=== PATIENT | male | born 1955 | race Caucasian/White ===

== ENCOUNTER 2024-10-06 12:54 | Inpatient (IN) | payer OTHER, MEDICARE ==
[2024-10-06] MEDS ORDERED: VANCOMYCIN IV PER PHARMACY 1 EACH MISC MISCELLANE PRN (13:21)
--- NOTE | 2024-10-06 13:33 | ED ---
General Adult HPI - General Stated complaint: L foot issue Time Seen by Provider: 10/06/24 13:15 Source: patient, RN notes reviewed, old records reviewed - History of Present Illness Initial comments: This is a 69-year-old male who was sent in by the [facility] for exposed bone and infection on the second toe of the left foot. Patient states it started bothering him about 2 weeks ago and the pain subsided about a week ago but he went into see the doctor today and the doctor told him it was infected he had exposed bone and need to get to the emergency department immediately. Patient denies any injury to the area. Patient denies any diabetes. Patient denies any fever chills. Patient states that Wrist of the f oot is starting to get swollen red and mildly tender. - Related Data Allergies Allergy/AdvReac Type Severity Reaction Status Date / Time No Known Allergies Allergy Verified 10/06/24 13:56 Review of Systems ROS Statement: Those systems with pertinent positive or pertinent negative responses have been documented in the HPI. ROS Other: All systems not noted in ROS Statement are negative. General Exam - General Exam Comments Initial Comments: GENERAL: Patient is well-developed and well-nourished. Patient is nontoxic and well- hydrated and is in no acute distress. ENT: Neck is soft and supple. No significant lymphadenopathy is noted. Oropharynx is clear. Moist mucous membranes. Neck has full range of motion without eliciting any pain. EYES: The sclera were anicteric and conjunctiva were pink and moist. Extraocular movements were intact and pupils were equal round and reactive to light. Eyelids were unremarkable. PULMONARY: Unlabored respirations. Good breath sounds bilaterally. No audible rales rhonchi or wheezing was noted. CARDIOVASCULAR: There is a regular rate and rhythm without any murmurs gallops or rubs. ABDOMEN: Soft and nontender with normal bowel sounds. SKIN: Skin is clear with no lesions or rashes and otherwise unremarkable. NEUROLOGIC: Patient is alert and oriented x3. Cranial nerves II through XII are grossly intact. Motor and sensory are also intact. Normal speech, volume and content. Symmetrical smile. MUSCULOSKELETAL: Patient's right foot is erythematous warm and painful. Patient's distal phalanx appears to be exposed and partly missing on the second toe on the right foot. It is necrotic and there is copious amounts of pus. LYMPHATICS: No significant lymphadenopathy is noted PSYCHIATRIC: Normal psychiatric evaluation. Course Vital Signs 10/06/24 13:57 Temperature 98.5 F Pulse Rate 83 Respiratory 16 Rate Blood Pressure 180/78 O2 Sat by Pulse 98 Oximetry Medical Decision Making - Medical Decision Making Was pt. sent in by a medical professional or institution (CATHERINE David, DIAMOND EXPERT, urgent care, hospital, or usp...) When possible be specific @ -No Did you speak to anyone other than the patient for history (EMS, parent, family, police, friend...)? What history was obtained from this source @ -No Did you review nursing and triage notes (agree or disagree)? Why? @ -I reviewed and agree with nursing and triage notes Were old charts reviewed (outside hosp., previous admission, EMS record, old EKG, old radiological studies, urgent care reports/EKG's, usp records)? Report findings @ -No old charts were reviewed Differential Diagnosis? @ -Cellulitis of the foot, necrosis of the toe, osteomyelitis, this is not an all-inclusive list EKG interpreted by me (3pts min.). @ -As above X-rays interpreted by me (1pt min.). @ -X-ray of the foot shows distal phalanx with osteomyelitis and erosion CT interpreted by me (1pt min.). @ -None done U/S interpreted by me (1pt. min.). @ -None done What testing was considered but not performed or refused? (CT, X-rays, U/S, labs)? Why? @ -None What meds were considered but not given or refused? Why? @ -None Did you discuss the management of the patient with other professionals (professionals i.e. CATHERINE David, DIAMOND EXPERT, lab, RT, psych nurse, social worker psychiatric, accounting representative, teacher, tax revenue officer, assistant case manager)? Give summary @ -I spoke with sound physicians agreed to admit the patient I admitted the patient wrote admitting orders Was smoking cessation discussed for >3mins.? @ -No Was critical care preformed (if so, how long)? @ -No Were there social determinants of health that impacted care today? How? (Homelessness, low income, unemployed, alcoholism, drug addiction, transp ortation, low edu. Level, literacy, decrease access to med. care, senior living, rehab)? @ -No Was there de-escalation of care discussed even if they declined (Discuss DNR or withdrawal of care, Hospice)? DNR status @ -No What co-morbidities impacted this encounter? (DM, HTN, Smoking, COPD, CAD, Cancer, CVA, ARF, Chemo, Hep., AIDS, mental health diagnosis, sleep apnea, morbid obesity)? @ -None Was patient admitted / discharged? Hospital course, mention meds given and route, prescriptions, significant lab abnormalities, going to OR and other pertinent info. @ -Patient was started on vancomycin and Zosyn. Patient's x-ray showed osteomyelitis patient will be admitted to [facility] physicians with a consult to vascular surgery and infectious disease Undiagnosed new problem with uncertain prognosis? @ -No Drug Therapy requiring intensive monitoring for toxicity (Heparin, Nitro, Insulin, Cardizem)? @ -No Were any procedures done? @ -No Diagnosis/symptom? @ -Osteomyelitis second toe on the right Acute, or Chronic, or Acute on Chronic? @ -Acute Uncomplicated (without systemic symptoms) or Complicated (systemic symptoms)? @ -Default Side effects of treatment? @ -No Exacerbation, Progression, or Severe Exacerbation? @ -No Poses a threat to life or bodily function? How? (Chest pain, [place], [place], pneumonia, PE, COPD, DKA, ARF, appy, cholecystitis, CVA, Diverticulitis, Homicidal, Suicidal, threat to staff... and all critical care pts) @ -Yes this can lead to sepsis and possible loss of more of the toes and feet Diagnosis/symptom? @ -Cellulitis foot Acute, or Chronic, or Acute on Chronic? @ -Acute Uncomplicated (without systemic symptoms) or Complicated (systemic symptoms)? @ -Complicated Side effects of treatment? @ -None Exacerbation, Progression, or Severe Exacerbation] @ -No Poses a threat to life or bodily function? @ -Yes this can lead to sepsis Diagnosis/symptom? @ -Hyponatremia Acute, or Chronic, or Acute on Chronic? @ -Acute Uncomplicated (without systemic symptoms) or Complicated (systemic symptoms)? @ -Complicated Side effects of treatment? @ -None Exacerbation, Progression, or Severe Exacerbation] @ -No Poses a threat to life or bodily function? @ -No - Lab Data Result diagrams: 10/06/24 14:02 10/06/24 14:02 Lab Results 10/06/24 10/06/24 10/06/24 Range/Units 14:02 14:02 14:02 WBC 14.3 H (3.8-10.6) k/uL RBC 4.20 L (4.30-5.90) m/uL Hgb 12.1 L (13.0-17.5) gm/dL Hct 36.6 L (39.0-53.0) % MCV 87.2 (80.0-100.0) fL MCH 28.7 (25.0-35.0) pg MCHC 32.9 (31.0-37.0) g/dL RDW 13.6 (11.5-15.5) % Plt Count 461 H (150-450) k/uL MPV 6.4 Neutrophils % 88 % Lymphocytes % 4 % Monocytes % 6 % Eosinophils % 0 % Basophils % 0 % Neutrophils # 12.6 H (1.3-7.7) k/uL Lymphocytes # 0.6 L (1.0-4.8) k/uL Monocytes # 0.8 (0-1.0) k/uL Eosinophils # 0.1 (0-0.7) k/uL Basophils # 0.1 (0-0.2) k/uL Sodium 125 L (137-145) mmol/L Potassium 4.2 (3.5-5.1) mmol/L Chloride 97 L (98-107) mmol/L Carbon Dioxide 19 L (22-30) mmol/L Anion Gap 9 mmol/L BUN 7 L (9-20) mg/dL Creatinine 0.61 L (0.66-1.25) mg/dL Est GFR (CKD-EPI)AfAm >90 (>60 ml/min/1.73 sqM) Est GFR (CKD-EPI)NonAf >90 (>60 ml/min/1.73 sqM) Glucose 104 H (74-99) mg/dL Plasma Lactic Acid Lyle 1.0 (0.7-2.0) mmol/L Calcium 9.3 (8.4-10.2) mg/dL Total Bilirubin 0.8 (0.2-1.3) mg/dL AST 19 (17-59) U/L ALT 13 (4-49) U/L Alkaline Phosphatase 93 (38-126) U/L Total Protein 7.4 (6.3-8.2) g/dL Albumin 4.3 (3.5-5.0) g/dL Disposition Clinical Impression: Hyponatremia, Cellulitis of foot, Osteomyelitis of toe Disposition: ADMITTED IP TO THIS HOSP Referrals: [facility],Clinic [Primary Care Provider] - 1-2 days Time of Disposition: 16:14
[2024-10-06 14:28] LABS: Basophils # (A) 0.1 k/uL (0-0.2); Basophils % (A) 0 %; Eosinophils # (A) 0.1 k/uL (0-0.7); Eosinophils % (A) 0 %; HCT 36.6 % (39.0-53.0); HGB 12.1 gm/dL (13.0-17.5); Lymphocytes # (A) 0.6 k/uL (1.0-4.8); Lymphocytes % (A) 4 %; MCH 28.7 pg (25.0-35.0); MCHC 32.9 g/dL (31.0-37.0); MCV 87.2 fL (80.0-100.0); Mean Platelet Volume 6.4; Monocytes # (A) 0.8 k/uL (0-1.0); Monocytes % (A) 6 %; Neutrophils # (A) 12.6 k/uL (1.3-7.7); Neutrophils % (A) 88 %; Platelet Count 461 k/uL (150-450); RDW 13.6 % (11.5-15.5); WBC 14.3 k/uL (3.8-10.6)
[2024-10-06] MEDS ORDERED: VANCOMYCIN 1,500 MG in SODIUM CHLORIDE 0.9% 500 ML 500 ML IVPB ONE (14:30)
[2024-10-06 15:01] LABS: ALT 13 U/L (4-49); AST 19 U/L (17-59); African American GFR (CKD) >90 (>60 ml/min/1.73 sqM); Albumin 4.3 g/dL (3.5-5.0); Alkaline Phosphatase 93 U/L (38-126); Anion Gap 9 mmol/L; Blood Urea Nitrogen 7 mg/dL (9-20); Calcium 9.3 mg/dL (8.4-10.2); Carbon Dioxide 19 mmol/L (22-30); Chloride 97 mmol/L (98-107); Glucose 104 mg/dL (74-99); Non-African American GFR(CKD) >90 (>60 ml/min/1.73 sqM); Potassium 4.2 mmol/L (3.5-5.1); Sodium 125 mmol/L (137-145); Total Bilirubin 0.8 mg/dL (0.2-1.3); Total Protein 7.4 g/dL (6.3-8.2)
--- NOTE | 2024-10-06 15:39 | XR ---
Left foot HISTORY: Foot pain rule out osteomyelitis. COMPARISON: None TECHNIQUE: 3 views of left foot were obtained. FINDINGS: There is a soft tissue defect and distraction of the distal phalanx in portion of the middle phalanx of the second toe. The findings are consistent with acute osteomyelitis. There is no fracture or disl ocation. IMPRESSION: A finding consistent with acute osteomyelitis of the second toe as described above. [facility], Workstation: ANDRES 10/06/2024 3:37 PM
[2024-10-06] MEDS: SODIUM CHLORIDE 0.9% 1,000 ML IV ONE ×2 (16:36→18:26)
[2024-10-06] MEDS: PIPERACILLIN-TAZOBACTAM 3.375 GM in SODIUM CHLORIDE 0.9% 100 ML IVPB STA (16:39)
[2024-10-06] MEDS: DILTIAZEM CD 240 MG CAP.ER.24H PO SCH (18:25)
--- NOTE | 2024-10-06 18:58 | P.HPIM ---
History of Present Illness H&P Date: 10/06/24 History of Presenting Illness: Patient is a pleasant 69-year-old male with a past medical history of prostate cancer status post prostatectomy, hypertension, and peripheral vascular disease status post stenting in bilateral lower extremities. Patient presented to the emergency department per recommendations of his PCP secondary to necrotic infection of left foot second toe. Patient reports he first noticed a very small spot on the tip of his toe approximately 2 weeks ago and was trying to keep area clean and dry and made an appointment with his PCP for evaluation. Patient reports his foot began to swell accompanied by redness, pain, and worsening of the black discoloration. He denies having any fevers, chills, chest pain, palpitations, shortness of breath, or experiencing any numbness/tingling in his extremity. Patient reports toe and surrounding area is very painful to touch. He denies history of diabetes but does state history of circulation problems with peripheral vascular disease and underwent stenting to bilateral legs at [facility] in [place] a few years ago. Unable to our facility, patient underwent evaluation in the emergency department. Vital signs upon arrival show blood pressure 180/78, heart rate 83, respiratory rate 16, temp 98.5 F, and SpO2 of 90% on room air. Labs completed and reviewed. CBC showing leukocytosis with WBC count of 14.3, hemoglobin of 12.1, platelet count of 461. BMP showing hyponatremia with sodium of 125, and metabolic alkalosis with chloride of 97, bicarb of 19, and anion gap of 9. Blood glucose was 104. Lactic acid 1.0. Liver profile unremarkable. X-ray left foot showing findings consistent with acute osteomyelitis of the second toe. Patient admitted under services with consultation to vascular surgery and infectious disease. Review of systems: Pertinent positives and negatives as discussed in HPI, a complete review of systems was performed and all other systems are negative. Physical exam: Vital signs reviewed and stable. General: Nontoxic, no distress and appears stated age. Derm: Skin warm and dry, normal coloration for ethnicity. Head: Atraumatic, normocephalic and symmetric. Eyes: EOM's intact, no lid lag, and anicteric sclera Mouth: no lip lesions, mucus membranes moist Cardiovascular: regular rate and rhythm with normal S1S2, no murmur, positive posterior tibial pulses bilaterally, and cap refill < 2 seconds. Lungs: Respirations even, regular, and unlabored on room air. Lungs CTA bilaterally, no rhonchi, no rales, no wheezing, and no accessory muscle usage. Abdominal: soft, nontender to palpation, no guarding, no appreciable organomegaly Ext: ROM intact. No gross muscle atrophy, no edema, no contractures. Patient with necrotic second digit of left foot with surrounding swelling and erythema extending up into lower leg. Neuro: Speech clear, face symmetrical and CN II-XII grossly intact with no noted focal neuro deficits Psych: Alert and oriented to person, place, time, and situation. Appropriate and pleasant affect. Assessment and Plan of Care: Osteomyelitis with necrotic second digit of left foot -Patient started on IV antibiotics with vancomycin 1500 mg every 12 hours and Zosyn 3.375 g every 8 hours. Monitor renal function and vancomycin trough closely for any signs of vancomycin associated renal toxicity. -Consult placed to infectious disease, appreciate recommendations -Consult placed to vascular surgery, appreciate recommendations -Symptomatic care and pain management with Tylenol 650 mg every 6 hours as needed for mild pain/discomfort, Elizabeth 5-325 mg tablets every 4 hours as needed for moderate pain, and morphine 4 mg IVP every 4 hours as needed for severe pain. Hyponatremia Metabolic alkalosis -Continue gentle IV fluid hydration with 0.9% normal saline at 75 cc/h. -Continue to monitor closely with repeat a.m. labs. Peripheral vascular disease -Continue aspirin 81 mg daily. Hypertension -continue lisinopril 20 mg daily and Cardizem 240 mg daily. History of prostate cancer -Post prostatectomy, continue to follow-up outpatient with urologist. Data and imaging reviewed: As stated above in HPI The patient is admitted with an anticipated greater than 2 midnight stay for evaluation of acute osteomyelitis CODE STATUS: Full code DVT prophylaxis: Lovenox Anticipated discharge date: Pending clinical course Anticipated discharge place: Pending clinical course Patient was seen independently by Nurse Practitioner. This document was prepared using [employer] dictation software. Please allow for errors in cp bleacher operator while rare they do occur. René Irving NP rendered care for this patient independently, reviewed the findings and plan as documented in the note above and agree with plan. I did not physically speak with or examine the patient on this date. Past Medical History Past Medical History: Cancer, Hypertension History of Any Multi-Drug Resistant Organisms: None Reported Past Surgical History: Adenoidectomy, Tonsillectomy Additional Past Surgical History / Comment(s): vasectomy, vascular surgery Past Psychological History: No Psychological Hx Reported Smoking Status: Former smoker Past Alcohol Use History: Occasional Past Drug Use History: None Reported Medications and Allergies Home Medications Medication Instructions Recorded Confirmed Type Acetaminophen Tab [Tylenol Tab] 1,000 mg PO Q6HR 10/06/24 10/06/24 History Aspirin EC [Ecotrin Low Dose] 81 mg PO DAILY 10/06/24 10/06/24 History Bergamot Extract [Bergacor] 650 mg PO AC-SUPPER 10/06/24 10/06/24 History Cholecalciferol (Vitamin D3) 75 mcg PO AC-SUPPER 10/06/24 10/06/24 History [Vitamin D3 (3000 Iu)] Cyanocobalamin [Vitamin B-12] 500 mcg PO AC-SUPPER 10/06/24 10/06/24 History Ferrous Sulfate [Feosol] 325 mg PO AC-SUPPER 10/06/24 10/06/24 History Garlic 1,000 mg PO AC-SUPPER 10/06/24 10/06/24 History Elise 500 mg PO AC-SUPPER 10/06/24 10/06/24 History Green Tea [place] Extract [Green Tea 250 mg PO AC-SUPPER 10/06/24 10/06/24 History Extract] Red Yeast Rice 600 mg PO AC-SUPPER 10/06/24 10/06/24 History Vitamin E (Dl,Tocopheryl Acet) 450 mg PO AC-SUPPER 10/06/24 10/06/24 History [Vitamin E (1000 Iu = 450 MG)] dilTIAZem HCL [dilTIAZem HCL 24Hr 240 mg PO AC-SUPPER 10/06/24 10/06/24 History ER (Xr)] lisinopriL [Prinivil] 20 mg PO DAILY 10/06/24 10/06/24 History Allergies Allergy/AdvReac Type Severity Reaction Status Date / Time No Known Allergies Allergy Verified 10/06/24 16:55 Physical Exam Vitals: Vital Signs Temp Pulse Resp BP Pulse Ox 10/06/24 18:13 76 18 129/64 99 10/06/24 17:45 87 18 160/78 98 10/06/24 13:57 98.5 F 83 16 180/78 98 Intake and Output 10/06/24 10/06/2424 06:59 14:59 22:59 Other: Weight 94.347 kg Results CBC & Chem 7: 10/06/24 14:02 10/06/24 14:02 Labs: Abnormal Lab Results - Last 24 Hours (Table) 10/06/24 10/06/24 Range/Units 14:02 14:02 WBC 14.3 H (3.8-10.6) k/uL RBC 4.20 L (4.30-5.90) m/uL Hgb 12.1 L (13.0-17.5) gm/dL Hct 36.6 L (39.0-53.0) % Plt Count 461 H (150-450) k/uL Neutrophils # 12.6 H (1.3-7.7) k/uL Lymphocytes # 0.6 L (1.0-4.8) k/uL Sodium 125 L (137-145) mmol/L Chloride 97 L (98-107) mmol/L Carbon Dioxide 19 L (22-30) mmol/L BUN 7 L (9-20) mg/dL Creatinine 0.61 L (0.66-1.25) mg/dL Glucose 104 H (74-99) mg/dL
[2024-10-06] MEDS: VANCOMYCIN 1,500 MG in SODIUM CHLORIDE 0.9% 500 ML 500 ML IVPB ONE (19:01)
[2024-10-06] MEDS ORDERED: ACETAMINOPHEN TAB 325 MG TAB PO PRN (19:05)
[2024-10-06] MEDS: HYDROcodone/APAP 5-325MG 1 EACH TAB PO PRN (21:27)
[2024-10-06] MEDS: PIPERACILLIN-TAZOBACTAM 3.375 GM in SODIUM CHLORIDE 0.9% 100 ML IVPB SCH (22:55)
[2024-10-07 04:12] LABS: ALT 11 U/L (4-49); AST 17 U/L (17-59); African American GFR (CKD) >90 (>60 ml/min/1.73 sqM); Albumin 3.4 g/dL (3.5-5.0); Albumin/Globulin Ratio 1.3; Alkaline Phosphatase 90 U/L (38-126); Anion Gap 7 mmol/L; Blood Urea Nitrogen 6 mg/dL (9-20); Calcium 8.6 mg/dL (8.4-10.2); Carbon Dioxide 17 mmol/L (22-30); Chloride 108 mmol/L (98-107); Globulin 2.7 g/dL; Glucose 102 mg/dL (74-99); Non-African American GFR(CKD) >90 (>60 ml/min/1.73 sqM); Potassium 4.1 mmol/L (3.5-5.1); Sodium 132 mmol/L (137-145); Total Bilirubin 0.7 mg/dL (0.2-1.3); Total Protein 6.1 g/dL (6.3-8.2)
[2024-10-07] MEDS: VANCOMYCIN 1,500 MG in SODIUM CHLORIDE 0.9% 500 ML 500 ML IVPB SCH (06:46)
[2024-10-07] MEDS: lisinopriL 20 MG TAB PO SCH (08:15)
[2024-10-07] MEDS: ASPIRIN 81 MG PO SCH (08:15)
[2024-10-07] MEDS: ENOXAPARIN 40 MG/0.4 ML SYRINGE SQ SCH (08:15)
[2024-10-07] MEDS: SODIUM CHLORIDE 0.9% 1,000 ML IV SCH (09:12)
[2024-10-07 10:40] LABS: HCT 31.5 % (39.6-50.0); HGB 10.4 g/dL (13.0-17.0); MCH 28.3 pg (27.0-32.0); MCV 85.8 FL (80.0-97.0); Mean Platelet Volume 8.3 FL (9.5-12.2); NRBC Per 100 WBC 0 X 10*3/uL (0.00-0.01); Platelet Count 351 X 10*3/uL (140-440); RBC 3.67 X 10*6/uL (4.40-5.60); RDW 14.4 % (11.5-14.5); WBC 9.73 X 10*3/uL (4.50-10.00)
[2024-10-07 10:53] LABS: Chol/HDL Ratio 3.44 Ratio; Magnesium 2.1 mg/dL (1.5-2.4); VLDL Calculation 16.96 mg/dL (5.00-40.00)
--- NOTE | 2024-10-07 12:20 | P.PN ---
Subjective Progress Note Date: 10/07/24 Hospital course: Patient is a pleasant 69-year-old male with a past medical history of prostate cancer status post prostatectomy, hypertension, and peripheral vascular disease status post stenting in bilateral lower extremities. Patient presented to the emergency department per recommendations of his PCP secondary to necrotic infection of left foot second toe. Patient reports he first noticed a very small spot on the tip of his toe approximately 2 weeks ago and was trying to keep area clean and dry and made an appointment with his PCP for evaluation. Patient reports his foot began to swell accompanied by redness, pain, and worsening of the black discoloration. He denies having any fevers, chills, chest pain, palpitations, shortness of breath, or experiencing any numbness/tingling in his extremity. Patient reports toe and surrounding area is very painful to touch. He denies history of diabetes but does state history of circulation problems with peripheral vascular disease and underwent stenting to bilateral legs at [facility] in [place] a few years ago. Unable to our facility, patient underwent evaluation in the emergency department. Vital signs upon arrival show blood pressure 180/78, heart rate 83, respiratory rate 16, temp 98.5 F, and SpO2 of 90% on room air. Labs completed and reviewed. CBC showing leukocytosis with WBC count of 14.3, hemoglobin of 12.1, platelet count of 461. BMP showing hyponatremia with sodium of 125, and metabolic alkalosis with chloride of 97, bicarb of 19, and anion gap of 9. Blood glucose was 104. Lactic acid 1.0. Liver profile unremarkable. X-ray left foot showing findings consistent with acute osteomyelitis of the second toe. Patient admitted under services with consultation to vascular surgery and infectious disease. Physical exam: Patient seen and fully evaluated at bedside this morning. He reports currently having some pain in his left foot but states it is improved from yesterday with current pain medication regimen. Vital signs reviewed and stable. General: Nontoxic, no distress and appears stated age. Derm: Skin warm and dry, normal coloration for ethnicity. Head: Atraumatic, normocephalic and symmetric. Eyes: EOM's intact, no lid lag, and anicteric sclera Mouth: no lip lesions, mucus membranes moist Cardiovascular: regular rate and rhythm with normal S1S2, no murmur, positive posterior tibial pulses bilaterally, and cap refill < 2 seconds. Lungs: Respirations even, regular, and unlabored on room air. Lungs CTA bilaterally, no rhonchi, no rales, no wheezing, and no accessory muscle usage. Abdominal: soft, nontender to palpation, no guarding, no appreciable organomegaly Ext: ROM intact. No gross muscle atrophy, no edema, no contractures. Patient with necrotic second digit of left foot with surrounding swelling and erythema extending up into lower leg. Neuro: Speech clear, face symmetrical and CN II-XII grossly intact with no noted focal neuro deficits Psych: Alert and oriented to person, place, time, and situation. Appropriate and pleasant affect. Assessment and Plan of Care: Osteomyelitis with necrotic second digit of left foot -Patient started on IV antibiotics with vancomycin 1500 mg every 12 hours and Zosyn 3.375 g every 8 hours. Monitor renal function and vancomycin trough closely for any signs of vancomycin associated renal toxicity. -Consult placed to infectious disease, appreciate recommendations -Consult placed to vascular surgery, appreciate recommendations -Symptomatic care and pain management with Tylenol 650 mg every 6 hours as needed for mild pain/discomfort, Hydes 5-325 mg tablets every 4 hours as needed for moderate pain, and morphine 4 mg IVP every 4 hours as needed for severe pain. -Follow-up on blood culture results once available. Hyponatremia Metabolic alkalosis -Continue gentle IV fluid hydration with 0.9% normal saline at 75 cc/h. -Continue to monitor closely with repeat a.m. labs. Peripheral vascular disease -Continue aspirin 81 mg daily. Hypertension -continue lisinopril 20 mg daily and Cardizem 240 mg daily. History of prostate cancer -Post prostatectomy, continue to follow-up outpatient with urologist. Data and imaging reviewed: Morning labs reviewed. CBC showing resolution of leukocytosis with WBC count decreasing from 14.3 down to 9.73. Hemoglobin stable at 10.4. BMP showing improvement of hyponatremia with sodium increasing from 125-132 and metabolic acidosis with chloride of 108, bicarb of 17, and anion gap of 7. Blood glucose 102. Magnesium 2.1. Liver profile unremarkable. Albumin low at 3.4. Lipid profile unremarkable with exception of low HDL of 36.00. Vital signs reviewed. Blood pressure 137/70, heart rate 53, respiratory rate 17, temp 99.3 F, and SpO2 of 98% on room air. CODE STATUS: Full code DVT prophylaxis: Lovenox Anticipated discharge date: Pending clinical course Anticipated discharge place: Pending clinical course Patient was seen independently by Nurse Practitioner. This document was prepared using [employer] dictation software. Please allow for errors in quartz miner blasting while rare they do occur. René Irving NP rendered care for this patient independently, reviewed the findings and plan as documented in the note above and agree with plan. I did not physically speak with or examine the patient on this date. Objective - Vital Signs Vital signs: Vital Signs Temp 99.3 F 10/07/24 07:29 Pulse 53 L 10/07/24 07:29 Resp 17 10/07/24 07:29 BP 137/70 10/07/24 07:29 Pulse Ox 98 10/07/24 07:29 FiO2 Intake & Output 10/06/24 10/07/24 10/07/24 18:59 06:59 18:59 Weight 94.347 kg 94.347 kg Other: # Voids 2 - Labs CBC & Chem 7: 10/07/24 03:38 10/07/24 03:38 Labs: Abnormal Lab Results - Last 24 Hours (Table) 10/06/24 10/06/24 10/07/24 Range/Units 14:02 14:02 03:38 WBC 14.3 H (3.8-10.6) k/uL RBC 4.20 L (4.30-5.90) m/uL Hgb 12.1 L (13.0-17.5) gm/dL Hct 36.6 L (39.0-53.0) % Plt Count 461 H (150-450) k/uL Neutrophils # 12.6 H (1.3-7.7) k/uL Lymphocytes # 0.6 L (1.0-4.8) k/uL Sodium 125 L 132 L (137-145) mmol/L Chloride 97 L 108 H (98-107) mmol/L Carbon Dioxide 19 L 17 L (22-30) mmol/L BUN 7 L 6 L (9-20) mg/dL Creatinine 0.61 L 0.64 L (0.66-1.25) mg/dL Glucose 104 H 102 H (74-99) mg/dL Total Protein 6.1 L (6.3-8.2) g/dL Albumin 3.4 L (3.5-5.0) g/dL
--- NOTE | 2024-10-07 15:12 | P.GSCN ---
History of Present Illness Consult date: 10/07/24 History of present illness: Ezio is a 69-year-old male with peripheral vascular disease who reportedly in 2019 had bilateral femoral incisions and stenting of his legs, he is not exactly sure where however he states he was in a 6-hour surgery in order to treat this area. At the time he also had issues with his veins and stripping. He states that he has a follow-up coming up with his vascular surgeons in [place] in the next 2 to 3 weeks and has had normal exam since his last visit. He states he initially had a small spot on the tip of his second toe on his left and has been trying to keep it clean and dry. He states that at some point it became bl ackened and traveled on the tip of the toe fell off. He states he was seen by his primary and told he needed to come into the hospital for further evaluation and workup. He did undergo an x-ray in the ER showing findings consistent with acute osteomyelitis of the second toe. Overall he thinks his swelling is improving in his left leg although still uncomfortable to him. Since his prostate surgery for cancer he has tried his best to forego any processed foods. He thinks overall this has helped his diet Past Medical History Past Medical History: Cancer, Hypertension Additional Past Medical History / Comment(s): PVD History of Any Multi-Drug Resistant Organisms: None Reported Past Surgical History: Adenoidectomy, Tonsillectomy Additional Past Surgical History / Comment(s): vasectomy, vascular surgery, Stents to bilat LE, Past Anesthesia/Blood Transfusion Reactions: No Reported Reaction Past Psychological History: No Psychological Hx Reported Smoking Status: Former smoker Past Alcohol Use History: Occasional Past Drug Use History: None Reported Medications and Allergies Home Medications Medication Instructions Recorded Confirmed Type Acetaminophen Tab [Tylenol Tab] 1,000 mg PO Q6HR 10/06/24 10/06/24 History Aspirin EC [Ecotrin Low Dose] 81 mg PO DAILY 10/06/24 10/06/24 History Bergamot Extract [Bergacor] 650 mg PO AC-SUPPER 10/06/24 10/06/24 History Cholecalciferol (Vitamin D3) 75 mcg PO AC-SUPPER 10/06/24 10/06/24 History [Vitamin D3 (3000 Iu)] Cyanocobalamin [Vitamin B-12] 500 mcg PO AC-SUPPER 10/06/24 10/06/24 History Ferrous Sulfate [Feosol] 325 mg PO AC-SUPPER 10/06/24 10/06/24 History Garlic 1,000 mg PO AC-SUPPER 10/06/24 10/06/24 History Elise 500 mg PO AC-SUPPER 10/06/24 10/06/24 History Green Tea [place] Extract [Green Tea 250 mg PO AC-SUPPER 10/06/24 10/06/24 History Extract] Red Yeast Rice 600 mg PO AC-SUPPER 10/06/24 10/06/24 History Vitamin E (Dl,Tocopheryl Acet) 450 mg PO AC-SUPPER 10/06/24 10/06/24 History [Vitamin E (1000 Iu = 450 MG)] dilTIAZem HCL [dilTIAZem HCL 24Hr 240 mg PO AC-SUPPER 10/06/24 10/06/24 History ER (Xr)] lisinopriL [Prinivil] 20 mg PO DAILY 10/06/24 10/06/24 History Allergies Allergy/AdvReac Type Severity Reaction Status Date / Time No Known Allergies Allergy Verified 10/06/24 16:55 Surgical - Exam Vital Signs Temp Pulse Resp BP Pulse Ox 98.5 F 83 16 180/78 98 10/06/24 13:57 10/06/24 13:57 10/06/24 13:57 10/06/24 13:57 10/06/24 13:57 General is a pleasant cooperative male in no acute distress. Heart appears regular. No respiratory distress. Abdomen is soft, nontender nondistended. Easily palpable femoral pulses bilaterally. Weakly palpable DP on the left, moderate edema. There is necrosis of the second toe with mild erythema on the inferior portion with a open wound. Distal tip of the second toe is missing. He is alert and oriented to person place and time. Cranial nerves II through XII grossly intact Results X-ray reviewed showing osteomyelitis - Labs 10/07/24 03:38 10/07/24 03:38 Abnormal Lab Results - Last 24 Hours (Table) 10/07/24 10/07/24 Range/Units 03:38 03:38 RBC 3.67 L (4.40-5.60) X 10*6/uL Hgb 10.4 L (13.0-17.0) g/dL Hct 31.5 L (39.6-50.0) % MPV 8.3 L (9.5-12.2) FL Sodium 132 L (137-145) mmol/L Chloride 108 H (98-107) mmol/L Carbon Dioxide 17 L (22-30) mmol/L BUN 6 L (9-20) mg/dL Creatinine 0.64 L (0.66-1.25) mg/dL Glucose 102 H (74-99) mg/dL Total Protein 6.1 L (6.3-8.2) g/dL Albumin 3.4 L (3.5-5.0) g/dL HDL Cholesterol 36.00 L (40.00-60.00) mg/dL Diabetes panel 10/07/24 10/07/24 Range/Units 03:38 03:38 Sodium 132 L (137-145) mmol/L Potassium 4.1 (3.5-5.1) mmol/L Chloride 108 H (98-107) mmol/L Carbon Dioxide 17 L (22-30) mmol/L BUN 6 L (9-20) mg/dL Creatinine 0.64 L (0.66-1.25) mg/dL Glucose 102 H (74-99) mg/dL Hemoglobin A1c 5.3 (<=6.0) % Calcium 8.6 (8.4-10.2) mg/dL AST 17 (17-59) U/L ALT 11 (4-49) U/L Alkaline Phosphatase 90 (38-126) U/L Total Protein 6.1 L (6.3-8.2) g/dL Albumin 3.4 L (3.5-5.0) g/dL Triglycerides 84.80 (0.00-149.00) mg/dL HDL Cholesterol 36.00 L (40.00-60.00) mg/dL Calcium panel 10/07/24 Range/Units 03:38 Calcium 8.6 (8.4-10.2) mg/dL Albumin 3.4 L (3.5-5.0) g/dL Pituitary panel 10/07/24 Range/Units 03:38 Sodium 132 L (137-145) mmol/L Potassium 4.1 (3.5-5.1) mmol/L Chloride 108 H (98-107) mmol/L Carbon Dioxide 17 L (22-30) mmol/L BUN 6 L (9-20) mg/dL Creatinine 0.64 L (0.66-1.25) mg/dL Glucose 102 H (74-99) mg/dL Calcium 8.6 (8.4-10.2) mg/dL Adrenal panel 10/07/24 Range/Units 03:38 Sodium 132 L (137-145) mmol/L Potassium 4.1 (3.5-5.1) mmol/L Chloride 108 H (98-107) mmol/L Carbon Dioxide 17 L (22-30) mmol/L BUN 6 L (9-20) mg/dL Creatinine 0.64 L (0.66-1.25) mg/dL Glucose 102 H (74-99) mg/dL Calcium 8.6 (8.4-10.2) mg/dL Total Bilirubin 0.7 (0.2-1.3) mg/dL AST 17 (17-59) U/L ALT 11 (4-49) U/L Alkaline Phosphatase 90 (38-126) U/L Total Protein 6.1 L (6.3-8.2) g/dL Albumin 3.4 L (3.5-5.0) g/dL Assessment and Plan Assessment: Acute osteomyelitis with necrosis of the second toe on the left foot. Continue antibiotics at this time. Will plan for toe amputation tomorrow, will hold off at this point on any aggressive arterial imaging as patient does have follow-up shortly with his primary vascular surgeons. Will reevaluate this pending surgical intervention. Risks and benefits were discussed including but not limited to bleeding, infection And poor wound healing. He seemingly understands and is willing to proceed.
[2024-10-07] MEDS: FERROUS SULFATE 325 MG TAB PO SCH (17:22)
[2024-10-07] MEDS: AMPICILLIN-SULBACTAM 3 GM in SODIUM CHLORIDE 0.9% 100 ML IVPB SCH (17:22)
--- NOTE | 2024-10-07 22:13 | P.CONS ---
History of Present Illness - Reason for Consult Consult date: 10/07/24 Osteomyelitis Requesting physician: Ming Bruner - Chief Complaint Left second toe tip discoloration x days - History of Present Illness Patient is a 69-year-old male with a past medical history significant for hypertension peripheral vascular disease former smoker presenting to the hospital for evaluation of increasing discoloration to the left second toe patient mention tip of his left second toe developed a small ulceration on the tip that he has been trying to keep it clean and dry subsequently has been evaluated by the PCP noticed to have a blackish discoloration and gangrene and the patient was advised to go to the hospital patient denies having any fever or any chills has been complaining of pain which is mostly dull aching to sharp moderate intensity without radiation patient has significant foul-smelling drainage on presentation to the hospital the patient was afebrile no fever have been recorded subsequently patient was not tachycardic hypotensive or hypoxic patient did have a white count of 14.3 with a left shift BUN and creatinine has been normal liver isms are normal patient did have x-ray of the foot did shows acute osteomyelitis of the second toe on the left side he was started on vancomycin and Zosyn infectious disease was consulted for further management of antibiotic therapy Review of Systems Positive point and negatives has been mentioned in the HPI, complete review of systems was performed and all other systems are negative Past Medical History Past Medical History: Cancer, Hypertension Additional Past Medical History / Comment(s): PVD History of Any Multi-Drug Resistant Organisms: None Reported Past Surgical History: Adenoidectomy, Tonsillectomy Additional Past Surgical History / Comment(s): vasectomy, vascular surgery, Stents to bilat LE, Past Anesthesia/Blood Transfusion Reactions: No Reported Reaction Past Psychological History: No Psychological Hx Reported Smoking Status: Former smoker Past Alcohol Use History: Occasional Past Drug Use History: None Reported Medications and Allergies Home Medications Medication Instructions Recorded Confirmed Type Acetaminophen Tab [Tylenol Tab] 1,000 mg PO Q6HR 10/06/24 10/06/24 History Aspirin EC [Ecotrin Low Dose] 81 mg PO DAILY 10/06/24 10/06/24 History Bergamot Extract [Bergacor] 650 mg PO AC-SUPPER 10/06/24 10/06/24 History Cholecalciferol (Vitamin D3) 75 mcg PO AC-SUPPER 10/06/24 10/06/24 History [Vitamin D3 (3000 Iu)] Cyanocobalamin [Vitamin B-12] 500 mcg PO AC-SUPPER 10/06/24 10/06/24 History Ferrous Sulfate [Feosol] 325 mg PO AC-SUPPER 10/06/24 10/06/24 History Garlic 1,000 mg PO AC-SUPPER 10/06/24 10/06/24 History Elise 500 mg PO AC-SUPPER 10/06/24 10/06/24 History Green Tea [place] Extract [Green Tea 250 mg PO AC-SUPPER 10/06/24 10/06/24 History Extract] Red Yeast Rice 600 mg PO AC-SUPPER 10/06/24 10/06/24 History Vitamin E (Dl,Tocopheryl Acet) 450 mg PO AC-SUPPER 10/06/24 10/06/24 History [Vitamin E (1000 Iu = 450 MG)] dilTIAZem HCL [dilTIAZem HCL 24Hr 240 mg PO AC-SUPPER 10/06/24 10/06/24 History ER (Xr)] lisinopriL [Prinivil] 20 mg PO DAILY 10/06/24 10/06/24 History Allergies Allergy/AdvReac Type Severity Reaction Status Date / Time No Known Allergies Allergy Verified 10/06/24 16:55 Physical Exam Vitals: Vital Signs Temp Pulse Pulse Resp BP BP Pulse Ox 10/07/24 07:29 99.3 F 53 L 17 137/70 98 10/07/24 02:00 99.3 F 71 14 155/62 97 10/06/24 19:44 97.8 F 71 166/62 100 10/06/24 18:13 76 18 129/64 99 10/06/24 17:45 87 18 160/78 98 10/06/24 13:57 98.5 F 83 16 180/78 98 Intake and Output 10/06/24 10/07/24 10/07/24 22:59 06:59 14:59 Other: # Voids 2 Weight 94.347 kg GENERAL DESCRIPTION: Elderly male lying in bed, no distress. No tachypnea or accessory muscle of respiration use. HEENT: Shows Pallor , no scleral icterus. Oral mucous membrane is dry. No pharyngeal erythema or thrush NECK: Trachea central, no thyromegaly. LUNGS: Unlabored breathing. Clear to auscultation anteriorly. No wheeze or crackle. HEART: S1, S2, regular rate and rhythm. No loud murmur ABDOMEN: Soft, no tenderness , EXTREMITIES: Left second toe tip is necrotic with a black eschar some swelling of the rest of the toe minimal drainage on the dressing no foul-smelling SKIN: No rash, no masses palpable. NEUROLOGICAL: The patient is awake, alert, oriented x3, mood and affect normal. Results CBC & Chem 7: 10/07/24 03:38 10/07/24 03:38 Labs: Abnormal Lab Results - Last 24 Hours (Table) 10/06/24 10/06/24 10/07/24 Range/Units 14:02 14:02 03:38 WBC 14.3 H (3.8-10.6) k/uL RBC 4.20 L (4.30-5.90) m/uL Hgb 12.1 L (13.0-17.5) gm/dL Hct 36.6 L (39.0-53.0) % Plt Count 461 H (150-450) k/uL MPV (9.5-12.2) FL Neutrophils # 12.6 H (1.3-7.7) k/uL Lymphocytes # 0.6 L (1.0-4.8) k/uL Sodium 125 L 132 L (137-145) mmol/L Chloride 97 L 108 H (98-107) mmol/L Carbon Dioxide 19 L 17 L (22-30) mmol/L BUN 7 L 6 L (9-20) mg/dL Creatinine 0.61 L 0.64 L (0.66-1.25) mg/dL Glucose 104 H 102 H (74-99) mg/dL Total Protein 6.1 L (6.3-8.2) g/dL Albumin 3.4 L (3.5-5.0) g/dL HDL Cholesterol 36.00 L (40.00-60.00) mg/dL 10/07/24 Range/Units 03:38 WBC (3.8-10.6) k/uL RBC 3.67 L (4.30-5.90) m/uL Hgb 10.4 L (13.0-17.5) gm/dL Hct 31.5 L (39.0-53.0) % Plt Count (150-450) k/uL MPV 8.3 L (9.5-12.2) FL Neutrophils # (1.3-7.7) k/uL Lymphocytes # (1.0-4.8) k/uL Sodium (137-145) mmol/L Chloride (98-107) mmol/L Carbon Dioxide (22-30) mmol/L BUN (9-20) mg/dL Creatinine (0.66-1.25) mg/dL Glucose (74-99) mg/dL Total Protein (6.3-8.2) g/dL Albumin (3.5-5.0) g/dL HDL Cholesterol (40.00-60.00) mg/dL Assessment and Plan (1) Gangrene of toe of left foot Current Visit: Yes Status: Acute Code(s): I96 - GANGRENE, NOT ELSEWHERE CLASSIFIED SNOMED Code(s): 94738985583088840 (2) Cellulitis of foot Current Visit: Yes Status: Acute Code(s): L03.119 - CELLULITIS OF UNSPECIFIE D PART OF LIMB SNOMED Code(s): 045007983 (3) Osteomyelitis of toe Current Visit: Yes Status: Acute Code(s): M86.9 - OSTEOMYELITIS, UNSPECIFIED SNOMED Code(s): 929954795 (4) Leukocytosis Current Visit: Yes Status: Acute Code(s): D72.829 - ELEVATED WHITE BLOOD CELL COUNT, UNSPECIFIED SNOMED Code(s): 614922847 Plan: 1patient presented to hospital with necrotic changes to the tip of his second toe with abnormal x-ray concerning for osteomyelitis likely secondary to underlying PAD/ischemia with possible second infection and need to cover for the polymicrobial rocio associated with such infection. 2patient to continue with the vancomycin however we will switch Zosyn to Unasyn to decrease the risk of nephrotoxicity. 3await vascular surgery evaluation for possible amputation and deep culture. We will follow on clinical condition and cultures to further adjust medication if needed Thank you for this consultation we will follow the patient along with you Dictation was produced using [employer] dictation software. please excuse any grammatical, word or spelling errors. Time with Patient: Greater than 30
[2024-10-07] MEDS: MELATONIN 3 MG TABLET PO PRN (22:36)
[2024-10-08] MEDS: VANCOMYCIN TROUGH DUE 1 EACH MISC MISCELLANE ONE (07:22)
[2024-10-08] MEDS: IV FLUID CONTINUATION 1,000 ML IV ONE (07:55)
[2024-10-08] MEDS: LIDOCAINE 1% INJ 10MG/ML (20 ML MDV) SQ ONE ×2 (08:04)
--- NOTE | 2024-10-08 08:24 | P.OP ---
Date of Procedure: 10/08/24 Description of Procedure: SURGEON: Erinn Amaya DO FIRE CONTROL SYSTEM INSTALLER: None PREOPERATIVE DIAGNOSIS: Gangrene with infection left second toe. POSTOPERATIVE DIAGNOSIS: Same. OPERATION: Left second toe amputation. ANESTHESIA: Sedation with local ESTIMATED BLOOD LOSS: 5 cc SPECIMENS REMOVED: Left second toe for disposal, deep culture COMPLICATIONS: None immediately apparent DESCRIPTION OF PROCEDURE: This patient was brought to the operating room, and given local and IV sedation. The operative foot was prepped and draped in sterile manner. An incision was made at the base of the second toe deep into skin and fascia on plantar and dorsal aspect until we reached the head of the metatarsal bone. [This patient had osteomyelitis of the left toe. There was pathologic fracture of the proximal phalanx. The head of the metatarsal was from the second toe. The tendons were divided in plantar and dorsal aspects. The fifth toe was removed. There were minimal bleeding points which were electrocoagulated and some of them were suture ligated. A wound culture was obtained. Base of the wound looked clean, and the wound was copiously irrigated with saline. The wound was left open due to the minimal purulence at the base of the wound. Hemostasis was well controlled and pressure dressing was applied. The patient tolerated the procedure well.
[2024-10-08 09:25] LABS: HCT 29.4 % (39.6-50.0); HGB 9.7 g/dL (13.0-17.0); Mean Platelet Volume 8.1 FL (9.5-12.2); NRBC Per 100 WBC 0 X 10*3/uL (0.00-0.01); Platelet Count 337 X 10*3/uL (140-440); RBC 3.46 X 10*6/uL (4.40-5.60); RDW 14.4 % (11.5-14.5); WBC 8.22 X 10*3/uL (4.50-10.00)
[2024-10-08 10:35] LABS: ALT 9 U/L (10-49); AST 16 U/L (14-35); Albumin 3.4 g/dL (3.8-4.9); Albumin/Globulin Ratio 1.48 Ratio (1.60-3.17); Alkaline Phosphatase 129 U/L (41-126); BUN/Creat Ratio 8.67 Ratio (12.00-20.00); Blood Urea Nitrogen 5.2 mg/dL (9.0-27.0); Calcium 8.5 mg/dL (8.7-10.3); Carbon Dioxide 19.6 mmol/L (21.6-31.8); Chloride 101 mmol/L (96-109); Globulin 2.3 g/dL (1.6-3.3); Glucose 94 mg/dL (70-110); Potassium 4.2 mmol/L (3.5-5.5); Sodium 131 mmol/L (135-145); Total Bilirubin 0.4 mg/dL (0.3-1.2); Total Protein 5.7 g/dL (6.2-8.2)
--- NOTE | 2024-10-08 17:05 | P.PN ---
Subjective Progress Note Date: 10/08/24 Hospital course: Patient is a pleasant 69-year-old male with a past medical history of prostate cancer status post prostatectomy, hypertension, and peripheral vascular disease status post stenting in bilateral lower extremities. Patient presented to the emergency department per recommendations of his PCP secondary to necrotic infection of left foot second toe. Patient reports he first noticed a very small spot on the tip of his toe approximately 2 weeks ago and was trying to keep area clean and dry and made an appointment with his PCP for evaluation. Patient reports his foot began to swell accompanied by redness, pain, and worsening of the black discoloration. He denies having any fevers, chills, chest pain, palpitations, shortness of breath, or experiencing any numbness/tingling in his extremity. Patient reports toe and surrounding area is very painful to touch. He denies history of diabetes but does state history of circulation problems with peripheral vascular disease and underwent stenting to bilateral legs at [facility] in [place] a few years ago. Unable to our facility, patient underwent evaluation in the emergency department. Vital signs upon arrival show blood pressure 180/78, heart rate 83, respiratory rate 16, temp 98.5 F, and SpO2 of 90% on room air. Labs completed and reviewed. CBC showing leukocytosis with WBC count of 14.3, hemoglobin of 12.1, platelet count of 461. BMP showing hyponatremia with sodium of 125, and metabolic alkalosis with chloride of 97, bicarb of 19, and anion gap of 9. Blood glucose was 104. Lactic acid 1.0. Liver profile unremarkable. X-ray left foot showing findings consistent with acute osteomyelitis of the second toe. Patient admitted under services with consultation to vascular surgery and infectious disease. Physical exam: Patient seen and fully evaluated at bedside this morning after returning from left foot second digit amputation. Dressing in place. Patient reports currently pain is controlled. Patient denies having any other complaints at this time. Patient expressed frustration on the amount of antibiotics he has been receiving in this hospital, patient educated on the importance of treating infection with antibiotics. Vital signs reviewed and stable. General: Nontoxic, no distress and appears stated age. Derm: Skin warm and dry, normal coloration for ethnicity. Head: Atraumatic, normocephalic and symmetric. Eyes: EOM's intact, no lid lag, and anicteric sclera Mouth: no lip lesions, mucus membranes moist Cardiovascular: regular rate and rhythm with normal S1S2, no murmur, positive posterior tibial pulses bilaterally, and cap refill < 2 seconds. Lungs: Respirations even, regular, and unlabored on room air. Lungs CTA bilaterally, no rhonchi, no rales, no wheezing, and no accessory muscle usage. Abdominal: soft, nontender to palpation, no guarding, no appreciable organomegaly Ext: ROM intact. No gross muscle atrophy, no edema, no contractures. Patient with necrotic second digit of left foot with surrounding swelling and erythema extending up into lower leg. Neuro: Speech clear, face symmetrical and CN II-XII grossly intact with no noted focal neuro deficits Psych: Alert and oriented to person, place, time, and situation. Appropriate and pleasant affect. Assessment and Plan of Care: Osteomyelitis with necrotic second digit of left foot -Continue IV antibiotics with vancomycin 1750 mg every 12 hours and Unasyn 3 g every 6 hours. Monitor renal function and vancomycin trough closely for any signs of vancomycin associated renal toxicity.Vancomycin trough subtherapeutic at 9.1, vancomycin dose increased from 1500 mg every 12 hours up to 1750 mg every 12 hours -Infectious disease following, reviewed documentation in chart -Vascular surgery following and took patient for amputation of left foot second digit this morning. -Symptomatic care and pain management with Tylenol 650 mg every 6 hours as needed for mild pain/discomfort, [place] 5-325 mg tablets every 4 hours as needed for moderate pain, and morphine 4 mg IVP every 4 hours as needed for severe pain. -Blood culture showing no growth to date Hyponatremia, improving IV fluid hydration Metabolic alkalosis, improving with IV fluid hydration -Continue gentle IV fluid hydration with 0.9% normal saline at 75 cc/h. -Continue to monitor closely with repeat a.m. labs. Peripheral vascular disease -Continue aspirin 81 mg daily. Hypertension -continue lisinopril 20 mg daily and Cardizem 240 mg daily. History of prostate cancer -Post prostatectomy, continue to follow-up outpatient with urologist. Data and imaging reviewed: Morning labs reviewed. Vancomycin trough subtherapeutic at 9.1, vancomycin dose increased from 1500 mg every 12 hours up to 1750 mg every 12 hours. CBC showing stable anemia with hemoglobin of 9.7. BMP showing sodium 131, chloride 101, bicarb 19.6, and anion gap of 10.40. Blood glucose 94. Liver profile showing elevated alkaline phosphatase of 129. Lipid profile unremarkable with exception of low HDL of 36.00. Vital signs reviewed. Blood pressure 125/67, heart rate 54, respiratory rate 16, temp 98.3 F, and SpO2 of 97% on room air. CODE STATUS: Full code DVT prophylaxis: Lovenox Anticipated discharge date: Pending clinical course Anticipated discharge place: Pending clinical course Patient was seen independently by Nurse Practitioner. This document was prepared using [employer] dictation software. Please allow for errors in matcher offbearer while rare they do occur. René Irving NP rendered care for this patient independently, reviewed the findings and plan as documented in the note above and agree with plan. I did not physically speak with or examine the patient on this date. Objective - Vital Signs Vital signs: Vital Signs Temp 98.8 F 10/08/24 06:52 Pulse 56 L 10/08/24 06:52 Resp 17 10/08/24 06:52 BP 149/69 10/08/24 06:52 Pulse Ox 97 10/08/24 06:52 FiO2 Intake & Output 10/07/24 10/08/24 10/08/24 18:59 06:59 18:59 Intake Total 500 Output Total 5 Balance 495 Intake: IV 500 Output: Estimated Blood Loss 5 Other: # Voids 1 1 - Labs CBC & Chem 7: 10/08/24 06:30 10/08/24 06:30 Labs: Abnormal Lab Results - Last 24 Hours (Table) 10/07/24 10/07/24 Range/Units 03:38 03:38 RBC 3.67 L (4.40-5.60) X 10*6/uL Hgb 10.4 L (13.0-17.0) g/dL Hct 31.5 L (39.6-50.0) % MPV 8.3 L (9.5-12.2) FL HDL Cholesterol 36.00 L (40.00-60.00) mg/dL Microbiology - Last 24 Hours (Table) 10/06/24 14:02 Blood Culture - Preliminary Blood
[2024-10-08] MEDS: VANCOMYCIN 1,750 MG in SODIUM CHLORIDE 0.9% 500 ML 500 ML IVPB SCH (18:03)
--- NOTE | 2024-10-08 21:32 | P.PN ---
Subjective Progress Note Date: 10/08/24 Principal diagnosis: Reason for follow-up is left second toe gangrene/osteomyelitis This is a telehealth visit Patient is a 69-year-old male with a past medical history significant for hypertension peripheral vascular disease former smoker presenting to the hospital for evaluation of increasing discoloration to the left second toe and has been diagnosed with a gangrene/osteomyelitis. Patient is status post left second toe amputation and deep culture completed on 10/08/2024. On today's evaluation that is 10/08/2024, the patient continues to be afebrile, the patient is on room air and breathing comfortably, the Pt denies having any chest pain or cough, the patient denies having any abdominal pain no vomiting or any diarrhea, denies pain to the left foot. Patient white count was 8.22, creatinine 0.6 blood cultures currently pending Objective - Vital Signs Vital signs: Vital Signs Temp 98.2 F 10/08/24 08:25 Pulse 54 L 10/08/24 09:15 Resp 16 10/08/24 09:15 BP 125/67 10/08/24 09:15 Pulse Ox 97 10/08/24 09:15 FiO2 Intake & Output 10/07/24 10/08/24 10/08/24 18:59 06:59 18:59 Intake Total 750 Output Total 5 Balance 745 Intake: IV 750 Output: Estimated Blood Loss 5 Other: # Voids 1 1 1 - Exam Elderly male lying in the bed in no distress No tachypnea or accessory muscle respiration use Unlabored breathing Left foot is currently dressed Patient is awake alert oriented x 3 - Labs CBC & Chem 7: 10/08/24 06:30 10/08/24 06:30 Labs: Abnormal Lab Results - Last 24 Hours (Table) 10/07/24 10/08/24 10/08/24 Range/Units 03:38 06:30 06:30 RBC 3.46 L (4.40-5.60) X 10*6/uL Hgb 9.7 L (13.0-17.0) g/dL Hct 29.4 L (39.6-50.0) % MPV 8.1 L (9.5-12.2) FL Sodium 131 L (135-145) mmol/L Carbon Dioxide 19.6 L (21.6-31.8) mmol/L BUN 5.2 L (9.0-27.0) mg/dL BUN/Creatinine Ratio 8.67 L (12.00-20.00) Ratio Calcium 8.5 L (8.7-10.3) mg/dL ALT 9 L (10-49) U/L Alkaline Phosphatase 129 H (41-126) U/L Total Protein 5.7 L (6.2-8.2) g/dL Albumin 3.4 L (3.8-4.9) g/dL Albumin/Globulin Ratio 1.48 L (1.60-3.17) Ratio HDL Cholesterol 36.00 L (40.00-60.00) mg/dL Microbiology - Last 24 Hours (Table) 10/06/24 14:02 Blood Culture - Preliminary Blood Assessment and Plan (1) Gangrene of toe of left foot Current Visit: Yes Status: Acute Code(s): I96 - GANGRENE, NOT ELSEWHERE CL ASSIFIED SNOMED Code(s): 12591839390454903 (2) Cellulitis of foot Current Visit: Yes Status: Acute Code(s): L03.119 - CELLULITIS OF UNSPECIFIED PART OF LIMB SNOMED Code(s): 789602552 (3) Osteomyelitis of toe Current Visit: Yes Status: Acute Code(s): M86.9 - OSTEOMYELITIS, UNSPECIFIED SNOMED Code(s): 473089584 (4) Leukocytosis Current Visit: Yes Status: Acute Code(s): D72.829 - ELEVATED WHITE BLOOD CELL COUNT, UNSPECIFIED SNOMED Code(s): 213965917 Plan: 1patient presented to hospital with necrotic changes to the tip of his second toe with abnormal x-ray concerning for osteomyelitis likely secondary to underlying PAD/ischemia with possible second infection and need to cover for the polymicrobial rocio associated with such infection. 2patient is status post a left second toe amputation and culture which are currently pending 3we will continue the patient on vancomycin and Unasyn while waiting for the culture to finalize to determine discharge antibiotics Dictation was produced using [employer] dictation software. please excuse any grammatical, word or spelling errors. Time with Patient: Less than 30
[2024-10-09 09:13] LABS: HGB 9.8 g/dL (13.0-17.0); MCHC 32.7 g/dL (32.0-37.0); MCV 88.8 FL (80.0-97.0); Mean Platelet Volume 8.7 FL (9.5-12.2); NRBC Per 100 WBC 0 X 10*3/uL (0.00-0.01); Platelet Count 332 X 10*3/uL (140-440); RBC 3.38 X 10*6/uL (4.40-5.60); RDW 14.2 % (11.5-14.5); WBC 6.54 X 10*3/uL (4.50-10.00)
[2024-10-09 09:19] LABS: ALT 9 U/L (10-49); AST 13 U/L (14-35); Albumin 3.5 g/dL (3.8-4.9); Albumin/Globulin Ratio 1.52 Ratio (1.60-3.17); Alkaline Phosphatase 119 U/L (41-126); Blood Urea Nitrogen 3.9 mg/dL (9.0-27.0); Calcium 8.6 mg/dL (8.7-10.3); Carbon Dioxide 20.1 mmol/L (21.6-31.8); Chloride 103 mmol/L (96-109); Globulin 2.3 g/dL (1.6-3.3); Glucose 92 mg/dL (70-110); Magnesium 2.2 mg/dL (1.5-2.4); Potassium 4.3 mmol/L (3.5-5.5); Sodium 135 mmol/L (135-145); Total Bilirubin 0.4 mg/dL (0.3-1.2); Total Protein 5.8 g/dL (6.2-8.2)
--- NOTE | 2024-10-09 09:59 | P.PN ---
Subjective Progress Note Date: 10/09/24 Principal diagnosis: Infected left second toe Patient is seen and examined today as a follow-up. He is postop day #1 for left second toe amputation for dry gangrene with infection. States pain is well- controlled. He has a follow-up with the [place] vascular surgeon in [place] in a couple weeks. He is afebrile. Has left lower extremity +1 pitting edema. Currently on IV vancomycin. Patient is voicing that he wants to be discharged today. Objective - Vital Signs Vital signs: Vital Signs Temp 97.6 F 10/09/24 06:47 Pulse 77 10/09/24 06:47 Resp 17 10/09/24 06:47 BP 168/73 10/09/24 06:47 Pulse Ox 97 10/09/24 06:47 FiO2 Intake & Output 10/08/24 10/09/24 10/09/24 18:59 06:59 18:59 Intake Total 750 Output Total 5 Balance 745 Intake: IV 750 Output: Estimated Blood Loss 5 Other: # Voids 1 3 - Exam General appearance: The patient is alert, oriented, appears in no acute distress. HET: Head is normocephalic and atraumatic. Pupils are equal and reactive. Neck: Supple. Heart: Regular. Lungs: Equal expansion, normal respiratory effort. Abdomen: Soft, nontender, nondistended. Extremities: Normal skin color and turgor. Neurological: No focal deficits. Strength and sensation are grossly intact. - Labs CBC & Chem 7: 10/09/24 03:31 10/09/24 03:31 Labs: Abnormal Lab Results - Last 24 Hours (Table) 10/08/24 10/08/24 Range/Units 06:30 06:30 RBC 3.46 L (4.40-5.60) X 10*6/uL Hgb 9.7 L (13.0-17.0) g/dL Hct 29.4 L (39.6-50.0) % MPV 8.1 L (9.5-12.2) FL Sodium 131 L (135-145) mmol/L Carbon Dioxide 19.6 L (21.6-31.8) mmol/L BUN 5.2 L (9.0-27.0) mg/dL BUN/Creatinine Ratio 8.67 L (12.00-20.00) Ratio Calcium 8.5 L (8.7-10.3) mg/dL ALT 9 L (10-49) U/L Alkaline Phosphatase 129 H (41-126) U/L Total Protein 5.7 L (6.2-8.2) g/dL Albumin 3.4 L (3.8-4.9) g/dL Albumin/Globulin Ratio 1.48 L (1.60-3.17) Ratio Microbiology - Last 24 Hours (Table) 10/06/24 14:02 Blood Culture - Preliminary Blood 10/08/24 08:21 Gram Stain - Preliminary Toe - Left Second Assessment and Plan Assessment: 1. Gangrene with infection of the left second toe status post amputation 2. History of peripheral arterial disease status post revascularization Plan: 1. Daily dressing change with wet-to-dry Dakin solution, 4 x 4 and Kerlix 2. Antibiotics per infectious disease 3. Patient is cleared from vascular surgery for discharge. Follow-up with Dr. Amaya in 1 to 2 weeks. 4. Follow-up with his vascular surgeon as previously scheduled for PAD Thank you for this consultation. The impression and plan of care has been dictated as directed. I performed a history and examination of this patient, discussed the same with the dictator. I agree with the dictator's note ,documented as a scribe. Any additional findings or plans will be noted.
[2024-10-09] MEDS: MORPHINE SULFATE 4 MG/ML SYRINGE IV PRN (11:25)
--- NOTE | 2024-10-09 12:54 | P.PN ---
Subjective Progress Note Date: 10/09/24 Principal diagnosis: Reason for follow-up is left second toe gangrene/osteomyelitis Patient is a 69-year-old male with a past medical history significant for hypertension peripheral vascular disease former smoker presenting to the hospital for evaluation of increasing discoloration to the left second toe and has been diagnosed with a gangrene/osteomyelitis. Patient is status post left second toe amputation and deep culture completed on 10/08/2024. On today's evaluation that is 10/09/2024, Patient is afebrile patient is currently on room air and denies having any shortness of breath, the patient denies any chest pain or cough, the patient denies any nausea vomiting did not have any abdominal pain and no diarrhea contamination site. Patient with 26.54, creatinine 0.6 cultures currently pending Objective - Vital Signs Vital signs: Vital Signs Temp 97.6 F 10/09/24 06:47 Pulse 77 10/09/24 06:47 Resp 17 10/09/24 06:47 BP 168/73 10/09/24 06:47 Pulse Ox 97 10/09/24 06:47 FiO2 Intake & Output 10/08/24 10/09/24 10/09/24 18:59 06:59 18:59 Intake Total 750 Output Total 5 Balance 745 Intake: IV 750 Output: Estimated Blood Loss 5 Other: # Voids 1 3 1 - Exam GENERAL DESCRIPTION: An elderly male lying in bed in no distress RESPIRATORY SYSTEM: Unlabored breathing , decreased breath sounds at bases HEART: S1 S2 regular rate and rhythm , ABDOMEN: Soft , no tenderness EXTREMITIES: Left second toe amputation wound is currently oh point with good granulation tissue surrounding redness decreased - Labs CBC & Chem 7: 10/09/24 03:31 10/09/24 03:31 Labs: Abnormal Lab Results - Last 24 Hours (Table) 10/09/24 10/09/24 Range/Units 03:31 03:31 RBC 3.38 L (4.40-5.60) X 10*6/uL Hgb 9.8 L (13.0-17.0) g/dL Hct 30.0 L (39.6-50.0) % MPV 8.7 L (9.5-12.2) FL Carbon Dioxide 20.1 L (21.6-31.8) mmol/L BUN 3.9 L (9.0-27.0) mg/dL BUN/Creatinine Ratio 6.50 L (12.00-20.00) Ratio Calcium 8.6 L (8.7-10.3) mg/dL AST 13 L (14-35) U/L ALT 9 L (10-49) U/L Total Protein 5.8 L (6.2-8.2) g/dL Albumin 3.5 L (3.8-4.9) g/dL Albumin/Globulin Ratio 1.52 L (1.60-3.17) Ratio Microbiology - Last 24 Hours (Table) 10/06/24 14:02 Blood Culture - Preliminary Blood 10/08/24 08:21 Gram Stain - Preliminary Toe - Left Second Assessment and Plan (1) Gangrene of toe of left foot Current Visit: Yes Status: Acute Code(s): I96 - GANGRENE, NOT ELSEWHERE CLASSIFIED SNOMED Code(s): 66899795187146208 (2) Cellulitis of foot Current Visit: Yes Status: Acute Code(s): L03.119 - CELLULITIS OF UNSPECIFIED PART OF LIMB SNOMED Code(s): 196080035 (3) Osteomyelitis of toe Current Visit: Yes Status: Acute Code(s): M86.9 - OSTEOMYELITIS, UNSPECIFIED SNOMED Code(s): 398318038 (4) Leukocytosis Current Visit: Yes Status: Acute Code(s): D72.829 - ELEVATED WHITE BLOOD CELL COUNT, UNSPECIFIED SNOMED Code(s): 316822318 Plan: 1patient presented to hospital with necrotic changes to the tip of his second toe with abnormal x-ray concerning for osteomyelitis likely secondary to underlying PAD/ischemia with possible second infection and need to cover for the polymicrobial rocio associated with such infection. 2patient is status post a left second toe amputation and culture which are curr ently pending 3patient is currently covered with vancomycin and Unasyn will likely benefit from a course of IV antibiotics on discharge this has been explained to the patient in layman terms Dictation was produced using [email or web address]com[employer] software. please excuse any grammatical, word or spelling errors. Time with Patient: Less than 30
--- NOTE | 2024-10-09 17:46 | P.PN ---
Subjective Progress Note Date: 10/09/24 Hospital course: Patient is a pleasant 69-year-old male with a past medical history of prostate cancer status post prostatectomy, hypertension, and peripheral vascular disease status post stenting in bilateral lower extremities. Patient presented to the emergency department per recommendations of his PCP secondary to necrotic infection of left foot second toe. Patient reports he first noticed a very small spot on the tip of his toe approximately 2 weeks ago and was trying to keep area clean and dry and made an appointment with his PCP for evaluation. Patient reports his foot began to swell accompanied by redness, pain, and worsening of the black discoloration. He denies having any fevers, chills, chest pain, palpitations, shortness of breath, or experiencing any numbness/tingling in his extremity. Patient reports toe and surrounding area is very painful to touch. He denies history of diabetes but does state history of circulation problems with peripheral vascular disease and underwent stenting to bilateral legs at [facility] in [place] a few years ago. Unable to our facility, patient underwent evaluation in the emergency department. Vital signs upon arrival show blood pressure 180/78, heart rate 83, respiratory rate 16, temp 98.5 F, and SpO2 of 90% on room air. Labs completed and reviewed. CBC showing leukocytosis with WBC count of 14.3, hemoglobin of 12.1, platelet count of 461. BMP showing hyponatremia with sodium of 125, and metabolic alkalosis with chloride of 97, bicarb of 19, and anion gap of 9. Blood glucose was 104. Lactic acid 1.0. Liver profile unremarkable. X-ray left foot showing findings consistent with acute osteomyelitis of the second toe. Patient admitted under services with consultation to vascular surgery and infectious disease. Physical exam: Patient seen and fully evaluated at bedside this morning. He reports his pain is controlled and expresses frustration over extended length of stay in the hospital. Patient informed that we are waiting on culture results and IV antibiotic recommendations from infectious disease prior to discharge. Vital signs reviewed and stable. General: Nontoxic, no distress and appears stated age. Derm: Skin warm and dry, normal coloration for ethnicity. Head: Atraumatic, normocephalic and symmetric. Eyes: EOM's intact, no lid lag, and anicteric sclera Mouth: no lip lesions, mucus membranes moist Cardiovascular: regular rate and rhythm with normal S1S2, no murmur, positive posterior tibial pulses bilaterally, and cap refill < 2 seconds. Lungs: Respirations even, regular, and unlabored on room air. Lungs CTA bila terally, no rhonchi, no rales, no wheezing, and no accessory muscle usage. Abdominal: soft, nontender to palpation, no guarding, no appreciable organomegaly Ext: ROM intact. No gross muscle atrophy, no edema, no contractures. Patient with necrotic second digit of left foot with surrounding swelling and erythema extending up into lower leg. Neuro: Speech clear, face symmetrical and CN II-XII grossly intact with no noted focal neuro deficits Psych: Alert and oriented to person, place, time, and situation. Appropriate and pleasant affect. Assessment and Plan of Care: Osteomyelitis with necrotic second digit of left foot -Continue IV antibiotics with vancomycin 1750 mg every 12 hours and Unasyn 3 g every 6 hours. Monitor renal function and vancomycin trough closely for any signs of vancomycin associated renal toxicity.Vancomycin trough subtherapeutic at 9.1, vancomycin dose increased from 1500 mg every 12 hours up to 1750 mg every 12 hours -Infectious disease following, reviewed documentation in chart -Vascular surgery following and took patient for amputation of left foot second digit this morning. -Symptomatic care and pain management with Tylenol 650 mg every 6 hours as ne eded for mild pain/discomfort, [place] 5-325 mg tablets every 4 hours as needed for moderate pain, and morphine 4 mg IVP every 4 hours as needed for severe pain. -Blood culture showing no growth to date Hyponatremia, improving IV fluid hydration Metabolic alkalosis, improving with IV fluid hydration -Continue gentle IV fluid hydration with 0.9% normal saline at 75 cc/h. -Continue to monitor closely with repeat a.m. labs. Peripheral vascular disease -Continue aspirin 81 mg daily. Hypertension -continue lisinopril 20 mg daily and Cardizem 240 mg daily. History of prostate cancer -Post prostatectomy, continue to follow-up outpatient with urologist. Data and imaging reviewed: Morning labs reviewed. CBC showing stable normocytic anemia with hemoglobin of 9.8. BMP showing mild hypocarbia with bicarb of 20.1 otherwise normal findings. Blood glucose 92. Liver profile showing a low AST of 13 and a low ALT of 9 otherwise normal findings. Albumin low at 3.5. Vital signs reviewed. Blood pressure 168/73, heart rate 77, respiratory rate 17, temp 97.6 F, and SpO2 of 97% on room air. CODE STATUS: Full code DVT prophylaxis: Lovenox Anticipated discharge date: Pending clinical course Anticipated discharge place: Pending clinical course Patient was seen independently by Nurse Practitioner. This document was prepared using [employer] dictation software. Please allow for errors in directional bore operator while rare they do occur. René Irving ASSOCIATE MANAGER rendered care for this patient independently, reviewed the findings and plan as documented in the note above and agree with plan. I did not physically speak with or examine the patient on this date. Objective - Vital Signs Vital signs: Vital Signs Temp 97.6 F 10/09/24 06:47 Pulse 77 10/09/24 06:47 Resp 17 10/09/24 06:47 BP 168/73 10/09/24 06:47 Pulse Ox 97 10/09/24 06:47 FiO2 Intake & Output 10/08/24 10/09/24 10/09/24 18:59 06:59 18:59 Intake Total 750 Output Total 5 Balance 745 Intake: IV 750 Output: Estimated Blood Loss 5 Other: # Voids 1 3 - Labs CBC & Chem 7: 10/09/24 03:31 10/09/24 03:31 Labs: Abnormal Lab Results - Last 24 Hours (Table) 10/08/24 10/08/24 Range/Units 06:30 06:30 RBC 3.46 L (4.40-5.60) X 10*6/uL Hgb 9.7 L (13.0-17.0) g/dL Hct 29.4 L (39.6-50.0) % MPV 8.1 L (9.5-12.2) FL Sodium 131 L (135-145) mmol/L Carbon Dioxide 19.6 L (21.6-31.8) mmol/L BUN 5.2 L (9.0-27.0) mg/dL BUN/Creatinine Ratio 8.67 L (12.00-20.00) Ratio Calcium 8.5 L (8.7-10.3) mg/dL ALT 9 L (10-49) U/L Alkaline Phosphatase 129 H (41-126) U/L Total Protein 5.7 L (6.2-8.2) g/dL Albumin 3.4 L (3.8-4.9) g/dL Albumin/Globulin Ratio 1.48 L (1.60-3.17) Ratio Microbiology - Last 24 Hours (Table) 10/06/24 14:02 Blood Culture - Preliminary Blood 10/08/24 08:21 Gram Stain - Preliminary Toe - Left Second
[2024-10-10] MEDS: VANCOMYCIN TROUGH DUE 1 EACH MISC MISCELLANE ONE (06:34)
[2024-10-10 07:52] VITALS: BP 154/68; PULSE 59; RESP 18; TEMP 97.6
[2024-10-10 08:25] LABS: HCT 29.3 % (39.6-50.0); HGB 9.7 g/dL (13.0-17.0); MCH 28.7 pg (27.0-32.0); MCHC 33.1 g/dL (32.0-37.0); MCV 86.7 FL (80.0-97.0); Mean Platelet Volume 8.6 FL (9.5-12.2); NRBC Per 100 WBC 0 X 10*3/uL (0.00-0.01); Platelet Count 348 X 10*3/uL (140-440); RBC 3.38 X 10*6/uL (4.40-5.60); WBC 6.46 X 10*3/uL (4.50-10.00)
[2024-10-10 09:49] LABS: ALT 14 U/L (10-49); AST 22 U/L (14-35); Albumin 3.4 g/dL (3.8-4.9); Albumin/Globulin Ratio 1.42 Ratio (1.60-3.17); Alkaline Phosphatase 180 U/L (41-126); Blood Urea Nitrogen 4.4 mg/dL (9.0-27.0); Calcium 8.6 mg/dL (8.7-10.3); Carbon Dioxide 19.6 mmol/L (21.6-31.8); Chloride 103 mmol/L (96-109); Globulin 2.4 g/dL (1.6-3.3); Glucose 103 mg/dL (70-110); Sodium 133 mmol/L (135-145); Total Bilirubin 0.3 mg/dL (0.3-1.2); Total Protein 5.8 g/dL (6.2-8.2)
--- NOTE | 2024-10-10 12:13 | P.PN ---
Subjective Progress Note Date: 10/10/24 Principal diagnosis: Infected left second toe Patient is seen and examined today as a follow-up. He is postop day #2 for left second toe amputation. Cultures are currently pending, but preliminary is presumptive Staph aureus. Patient has been afebrile, no leukocytosis. States he had some pain last night however it is improved today with pain medication. Objective - Vital Signs Vital signs: Vital Signs Temp 97.6 F 10/10/24 06:59 Pulse 59 L 10/10/24 06:59 Resp 18 10/10/24 06:59 BP 154/68 10/10/24 06:59 Pulse Ox 96 10/10/24 06:59 FiO2 Intake & Output 10/09/24 10/10/24 10/10/24 18:59 06:59 18:59 Other: Voiding Method Toilet # Voids 3 3 1 # Bowel Movements 2 1 - Exam General appearance: The patient is alert, oriented, appears in no acute distress. HET: Head is normocephalic and atraumatic. Pupils are equal and reactive. Neck: Supple. Heart: Regular. Lungs: Equal expansion, normal respiratory effort. Abdomen: Soft, nontender, nondistended. Extremities: Normal skin color and turgor. Left foot second toe amputation site with pink tissue, serosanguineous drainage, no odor. Neurological: No focal deficits. Strength and sensation are grossly intact. - Labs CBC & Chem 7: 10/10/24 03:27 10/10/24 03:27 Labs: Abnormal Lab Results - Last 24 Hours (Table) 10/09/24 10/09/24 Range/Units 03:31 03:31 RBC 3.38 L (4.40-5.60) X 10*6/uL Hgb 9.8 L (13.0-17.0) g/dL Hct 30.0 L (39.6-50.0) % MPV 8.7 L (9.5-12.2) FL Carbon Dioxide 20.1 L (21.6-31.8) mmol/L BUN 3.9 L (9.0-27.0) mg/dL BUN/Creatinine Ratio 6.50 L (12.00-20.00) Ratio Calcium 8.6 L (8.7-10.3) mg/dL AST 13 L (14-35) U/L ALT 9 L (10-49) U/L Total Protein 5.8 L (6.2-8.2) g/dL Albumin 3.5 L (3.8-4.9) g/dL Albumin/Globulin Ratio 1.52 L (1.60-3.17) Ratio Microbiology - Last 24 Hours (Table) 10/06/24 14:02 Blood Culture - Preliminary Blood 10/08/24 08:21 Gram Stain - Preliminary Toe - Left Second Wound Culture - Preliminary Presumptive Staph aureus Assessment and Plan Assessment: 1. Gangrene with infection of the left second toe status post amputation 2. History of peripheral arterial disease status post revascularization Plan: 1. Daily dressing change with wet-to-dry Dakin solution, 4 x 4 and Kerlix 2. Antibiotics per infectious disease 3. Patient is cleared from vascular surgery for discharge. Follow-up with Dr. Amaya in 1 to 2 weeks. 4. Follow-up with his vascular surgeon as previously scheduled for PAD Thank you for this consultation. The impression and plan of care has been dictated as directed. Dr. Grace I performed a history and examination of this patient, discussed the same with the dictator. I agree with the dictator's note ,documented as a scribe. Any additional findings or plans will be noted.
--- NOTE | 2024-10-10 14:16 | P.PN ---
Subjective Progress Note Date: 10/10/24 Principal diagnosis: Reason for follow-up is left second toe gangrene/osteomyelitis Patient is a 69-year-old male with a past medical history significant for hypertension peripheral vascular disease former smoker presenting to the hospital for evaluation of increasing discoloration to the left second toe and has been diagnosed with a gangrene/osteomyelitis. Patient is status post left second toe amputation and deep culture completed on 10/08/2024. On today's evaluation that is 10/10/2024, patient has been afebrile, patient is breathing comfortably and is currently on room air, patient denies having any significant cough no chest pain, patient denies nausea vomiting or diarrhea and no abdominal pain or pain to the left second abrasion site patient has been fig hting to go home since morning as I have received multiple messages from the RN taking care of this patient. Patient white count 6.46, creatinine 0.5 culture growing Staph aureus with sensitivities pending Objective - Vital Signs Vital signs: Vital Signs Temp 97.6 F 10/10/24 06:59 Pulse 59 L 10/10/24 06:59 Resp 18 10/10/24 06:59 BP 154/68 10/10/24 06:59 Pulse Ox 96 10/10/24 06:59 FiO2 Intake & Output 10/09/24 10/10/24 10/10/24 18:59 06:59 18:59 Intake Total 240 Balance 240 Intake: Oral 240 Other: Voiding Method Toilet # Voids 3 3 1 # Bowel Movements 2 1 - Exam GENERAL DESCRIPTION: An elderly male lying in bed in no distress RESPIRATORY SYSTEM: Unlabored breathing , decreased breath sounds at bases HEART: S1 S2 regular rate and rhythm , ABDOMEN: Soft , no tenderness EXTREMITIES: Left second toe amputation wound just dressed by the nursing staff mention overall wound base looks clean - Labs CBC & Chem 7: 10/10/24 03:27 10/10/24 03:27 Labs: Abnormal Lab Results - Last 24 Hours (Table) 10/10/24 10/10/24 Range/Units 03:27 03:27 RBC 3.38 L (4.40-5.60) X 10*6/uL Hgb 9.7 L (13.0-17.0) g/dL Hct 29.3 L (39.6-50.0) % MPV 8.6 L (9.5-12.2) FL Sodium 133 L (135-145) mmol/L Carbon Dioxide 19.6 L (21.6-31.8) mmol/L BUN 4.4 L (9.0-27.0) mg/dL Creatinine 0.5 L (0.6-1.5) mg/dL BUN/Creatinine Ratio 8.80 L (12.00-20.00) Ratio Calcium 8.6 L (8.7-10.3) mg/dL Alkaline Phosphatase 180 H (41-126) U/L Total Protein 5.8 L (6.2-8.2) g/dL Albumin 3.4 L (3.8-4.9) g/dL Albumin/Globulin Ratio 1.42 L (1.60-3.17) Ratio Microbiology - Last 24 Hours (Table) 10/06/24 14:02 Blood Culture - Preliminary Blood 10/08/24 08:21 Gram Stain - Preliminary Toe - Left Second Wound Culture - Preliminary Presumptive Staph aureus Assessment and Plan (1) Gangrene of toe of left foot Status: Acute Code(s): I96 - GANGRENE, NOT ELSEWHERE CLASSIFIED SNOMED Code(s): 38838808797536808 (2) Cellulitis of foot Status: Acute Code(s): L03.119 - CELLULITIS OF UNSPECIFIED PART OF LIMB SNOMED Code(s): 477048078 (3) Osteomyelitis of toe Status: Acute Code(s): M86.9 - OSTEOMYELITIS, UNSPECIFIED SNOMED Code(s): 479791714 (4) Leukocytosis Status: Acute Code(s): D72.829 - ELEVATED WHITE BLOOD CELL COUNT, UNSPECIFIED SNOMED Code(s): 199277601 Plan: 1patient presented to hospital with necrotic changes to the tip of his second toe with abnormal x-ray concerning for osteomyelitis likely secondary to underlying PAD/ischemia with possible second infection and need to cover for the polymicrobial rocio associated with such infection. 2patient is status post a left second toe amputation and culture which are cu rrently growing Staph aureus with sensitivities pending 3patient is currently covered with vancomycin and Unasyn will likely benefit from a course of IV antibiotics on discharge however we need to wait for the sensitivities before we can [facility] final [facility] this has been explained to the patient in layman terms again and again however the patient refusing and wants to leave AMA patient has been advised not to do such as going home without any antibiotics can lead to worsening infection and he may need a bruise his foot however the patient mention he will follow-up with his PCP Dictation was produced using [employer] dictation software. please excuse any grammatical, word or spelling errors.
--- NOTE | 2024-10-10 14:58 | P.DS ---
Providers Date of admission: 10/06/24 16:25 Attending physician: Cortes Pineda Consults: 10/06/24 16:16 Consult Physician Urgent Consulting Provider: Erinn Amaya Consult Reason/Comments: Necrotic toe Do you want consulting provider notified?: Yes Consult Physician Urgent Consulting Provider: Sujatha Kenny Consult Reason/Comments: Osteomyelitis Do you want consulting provider notified?: Yes Primary care physician: [facility] Hospital Course: PATIENT LEFT AMA DISCHARGE SUMMARY Hospital course: Patient is a pleasant 69-year-old male with a past medical history of prostate cancer status post prostatectomy, hypertension, and peripheral vascular disease status post stenting in bilateral lower extremities. Patient presented to the emergency department per recommendations of his PCP secondary to necrotic infection of left foot second toe. Patient reports he first noticed a very small spot on the tip of his toe approximately 2 weeks ago and was trying to keep area clean and dry and made an appointment with his PCP for evaluation. Patient reports his foot began to swell accompanied by redness, pain, and worsening of the black discoloration. He denies having any fevers, chills, chest pain, palpitations, shortness of breath, or experiencing any numbness/tingling in his extremity. Patient reports toe and surrounding area is very painful to touch. He denies history of diabetes but does state history of circulation problems with peripheral vascular disease and underwent stenting to bilateral legs at [facility] in [place] a few years ago. Unable to our facility, patient underwent evaluation in the emergency department. Vital signs upon arrival show blood pressure 180/78, heart rate 83, respiratory rate 16, temp 98.5 F, and SpO2 of 90% on room air. Labs completed and reviewed. CBC showing leukocytosis with WBC count of 14.3, hemoglobin of 12.1, platelet count of 461. BMP showing hyponatremia with sodium of 125, and metabolic alkalosis with chloride of 97, bicarb of 19, and anion gap of 9. Blood glucose was 104. Lactic acid 1.0. Liver profile unremarkable. X-ray left foot showing findings consistent with acute osteomyelitis of the second toe. Patient admitted under services with consultation to vascular surgery and infectious disease. Physical exam: Patient seen and fully evaluated at bedside this morning. He reports his pain is controlled and expresses frustration over extended length of stay in the hospital. Patient informed that we are waiting on culture results and IV antibiotic recommendations from infectious disease prior to discharge. Vital signs reviewed and stable. General: Nontoxic, no distress and appears stated age. Derm: Skin warm and dry, normal coloration for ethnicity. Head: Atraumatic, normocephalic and symmetric. Eyes: EOM's intact, no lid lag, and anicteric sclera Mouth: no lip lesions, mucus membranes moist Cardiovascular: regular rate and rhythm with normal S1S2, no murmur, positive posterior tibial pulses bilaterally, and cap refill < 2 seconds. Lungs: Respirations even, regular, and unlabored on room air. Lungs CTA bilaterally, no rhonchi, no rales, no wheezing, and no accessory muscle usage. Abdominal: soft, nontender to palpation, no guarding, no appreciable organomegaly Ext: ROM intact. No gross muscle atrophy, no edema, no contractures. Patient with necrotic second digit of left foot with surrounding swelling and erythema extending up into lower leg. Neuro: Speech clear, face symmetrical and CN II-XII grossly intact with no noted focal neuro deficits Psych: Alert and oriented to person, place, time, and situation. Appropriate and pleasant affect. Assessment and Plan of Care: Osteomyelitis with necrotic second digit of left foot -Continue IV antibiotics with vancomycin 1750 mg every 12 hours and Unasyn 3 g every 6 hours. Monitor renal function and vancomycin trough closely for any signs of vancomycin associated renal toxicity.Vancomycin trough subtherapeutic at 9.1, vancomycin dose increased from 1500 mg every 12 hours up to 1750 mg every 12 hours -Infectious disease following, reviewed documentation in chart -Vascular surgery following and took patient for amputation of left foot second digit this morning. -Symptomatic care and pain management with Tylenol 650 mg every 6 hours as needed for mild pain/discomfort, [place] 5-325 mg tablets every 4 hours as needed for moderate pain, and morphine 4 mg IVP every 4 hours as needed for severe pain. -Blood culture showing no growth to date Hyponatremia, improving IV fluid hydration Metabolic alkalosis, improving with IV fluid hydration -Continue gentle IV fluid hydration with 0.9% normal saline at 75 cc/h. -Continue to monitor closely with repeat a.m. labs. Peripheral vascular disease -Continue aspirin 81 mg daily. Hypertension -continue lisinopril 20 mg daily and Cardizem 240 mg daily. History of prostate cancer -Post prostatectomy, continue to follow-up outpatient with urologist. Patient seen and examined at bedside Patient appeared to be very frustrated today, he states that he is leaving 1 way or another I did discuss with the patient that we need clearance from infectious disease regarding his antibiotic treatment, he states that he is not willing to wait any longer for ID to make recommendations I explained the risk benefits to the patient, we will try to reach out to ID, nursing staff to reach out to see if regimen can be prescribed however he states that he will be leaving AMA He states that he has close follow-up at the [facility] Status post amputation of the second digit on the left foot, performed without any immediate complications Patient is not cleared for discharge CLAIR GUERRERO MD ATTENDING PHYSICIAN Patient Condition at Discharge: Undetermined Plan - Discharge Summary Discharge Rx Participant: No New Discharge Prescriptions: No Action Red Yeast Rice 600 mg PO AC-SUPPER Green Tea [place] Extract [Green Tea Extract] 250 mg PO AC-SUPPER Elise 500 mg PO AC-SUPPER Garlic 1,000 mg PO AC-SUPPER Aspirin EC [Ecotrin Low Dose] 81 mg PO DAILY lisinopriL [Prinivil] 20 mg PO DAILY Acetaminophen Tab [Tylenol Tab] 1,000 mg PO Q6HR Bergamot Extract [Bergacor] 650 mg PO AC-SUPPER Cyanocobalamin [Vitamin B-12] 500 mcg PO AC-SUPPER dilTIAZem HCL [dilTIAZem HCL 24Hr ER (Xr)] 240 mg PO AC-SUPPER Ferrous Sulfate [Feosol] 325 mg PO AC-SUPPER Vitamin E (Dl,Tocopheryl Acet) [Vitamin E (1000 Iu = 450 MG)] 450 mg PO AC- SUPPER Cholecalciferol (Vitamin D3) [Vitamin D3 (3000 Iu)] 75 mcg PO AC-SUPPER Discharge Medication List Acetaminophen Tab [Tylenol Tab] 1,000 mg PO Q6HR 10/06/24 [History] Aspirin EC [Ecotrin Low Dose] 81 mg PO DAILY 10/06/24 [History] Bergamot Extract [Bergacor] 650 mg PO AC-SUPPER 10/06/24 [History] Cholecalciferol (Vitamin D3) [Vitamin D3 (3000 Iu)] 75 mcg PO AC-SUPPER 10/06/24 [History] Cyanocobalamin [Vitamin B-12] 500 mcg PO AC-SUPPER 10/06/24 [History] Ferrous Sulfate [Feosol] 325 mg PO AC-SUPPER 10/06/24 [History] Garlic 1,000 mg PO AC-SUPPER 10/06/24 [History] Elise 500 mg PO AC-SUPPER 10/06/24 [History] Green Tea [place] Extract [Green Tea Extract] 250 mg PO AC-SUPPER 10/06/24 [History] Red Yeast Rice 600 mg PO AC-SUPPER 10/06/24 [History] Vitamin E (Dl,Tocopheryl Acet) [Vitamin E (1000 Iu = 450 MG)] 450 mg PO AC-S UPPER 10/06/24 [History] dilTIAZem HCL [dilTIAZem HCL 24Hr ER (Xr)] 240 mg PO AC-SUPPER 10/06/24 [History] lisinopriL [Prinivil] 20 mg PO DAILY 10/06/24 [History] Follow up Appointment(s)/Referral(s): Erinn Amaya DO [STAFF PHYSICIAN] - 1 Week [facility] [Primary Care Provider] - 1-2 days Activity/Diet/Wound Care/Special Instructions: Daily dressing change with wet-to-dry dressing with Dakin solution, 4 x 4, and wrap with Kerlix Discharge Disposition: LEFT AGAINST MEDICAL ADVICE
[2024-10-11] MEDS ORDERED: VANCOMYCIN TROUGH DUE 1 EACH MISC MISCELLANE ONE (05:00)
== END 2024-10-10 12:04 | disposition left against medical advice (07) | DRG 504 ==
LOC: EC 12:54 → 4SSUR 16:25
PROVIDERS: ADMIT Student in an Organized Health Care Education/Training Program; ATTEND Student in an Organized Health Care Education/Training Program
PROC: 0Y6S0Z0 Detachment at Left 2nd Toe, Complete, Open Approach (ICD-10-PCS; principal; 2024-10-08 08:00)
DX: M86.172 Other acute osteomyelitis, left ankle and foot (principal); E87.1 Hypo-osmolality and hyponatremia; I96 Gangrene, not elsewhere classified; E87.3 Alkalosis; M84.675A Pathological fracture in other disease, left foot, initial encounter for fracture; L03.116 Cellulitis of left lower limb; I73.9 Peripheral vascular disease, unspecified; I10 Essential (primary) hypertension; Z79.82 Long term (current) use of aspirin; Z79.899 Other long term (current) drug therapy; Z85.46 Personal history of malignant neoplasm of prostate; Z90.79 Acquired absence of other genital organ(s); Z87.891 Personal history of nicotine dependence; Z95.820 Peripheral vascular angioplasty status with implants and grafts
CPT/HCPCS: 36415; 80053; 80061; 80202; 83036; 83605; 83735; 85025; 85027; 87040; 87070; 87075; 87077; 87186; 87205; 96365; 96366; 99285